=== PATIENT | female | born 1975 | race Two or more races ===

== ENCOUNTER 2016-08-12 20:49 | Inpatient (IN) | payer MEDICAID ==
[~2016-08-12] VITALS: Ht 167.6 cm; Wt 83.5 kg
[~2016-08-12 20:49] MED LIST: LEVO25TA6
[2016-08-12 21:22] LABS: Urine Blood TRACE /uL (Negative); Urine Color Yellow (Yellow); Urine Glucose Normal (Normal); Urine Ketone Negative (Negative); Urine Mucus FEW (None Seen); Urine Nitrite Negative (Negative); Urine RBC 2 /hpf (0 - 4); Urine Squamous Epithelial Cell MOD /hpf (<5)
[2016-08-12 21:25] LABS: Basophils # (auto) 0 uL; Basophils % (auto) 0.1 % (0.0-2.0); CONDITION Y; Eosinophils # (auto) 0 uL; Eosinophils % (auto) 0.3 % (0.0-7.0); Hematocrit 41.5 % (36.0-46.0); Hemoglobin 14.2 g/dL (12.2-16.2); Mean Corpuscular Hemoglobin 28.6 pg (28.0-32.0); Mean Corpuscular Hgb Conc. 34.3 g/dL (32.0-36.0); Mean Corpuscular Volume 83.6 fL (80.0-100.0); Monocytes # (auto) 0.1 uL; Monocytes % (auto) 1.2 % (0.0-12.0); Neutrophils # (auto) 6.9 uL; Neutrophils % (auto) 86.4 % (37.0-80.0); Platelet Count (auto) 277 10^3/uL (140-450); Red Cell Distribution Width 13.2 % (11.6-16.0)
[2016-08-12 21:35] LABS: Urine Bilirubin Negative (Negative)
[2016-08-12 21:50] LABS: Albumin 3.7 g/dL (3.4-5.0); BUN/Creatinine Ratio 12.3; Calcium 8.4 mg/dL (8.5-10.1); Magnesium 1.9 mg/dL (1.6-2.6); Potassium 3.5 mmol/L (3.5-5.1)
[2016-08-12 21:53] LABS: Bilirubin, Total 2.6 mg/dL (0.2-1.0); Total Protein 7.8 g/dL (6.4-8.2)
[2016-08-13] MEDS ORDERED: HYDROmorphone HCL 2 MG/ML VL IV ONE (02:15)
[2016-08-13] MEDS ORDERED: SODIUM CHLORIDE 0.9% 1,000 ML IV ONE (02:15)
[2016-08-13] MEDS ORDERED: ONDANSETRON HCL 4 MG/2 ML VIAL IV ONE (02:15)
[2016-08-13 03:05] LABS: Amylase 53 U/L (25-115)
[2016-08-13] MEDS: SODIUM CHLORIDE 0.9% 1,000 ML IV SCH ×2 (06:59→21:36)
[2016-08-13] MEDS ORDERED: ACETAMINOPHEN 325 MG TAB PO PRN (07:00)
[2016-08-13] MEDS ORDERED: TEMAZEPAM 15 MG CAP PO PRN (07:00)
[2016-08-13] MEDS: MORPHINE SULF INJ 2 MG/ML SYRINGE 1ML IV PRN ×2 (07:54→11:42)
[2016-08-13] MEDS: ONDANSETRON HCL 4 MG/2 ML VIAL IV PRN ×3 (07:54→22:35)
[2016-08-13] MEDS: PANTOPRAZOLE SODIUM 40 MG/10 ML VIAL IV SCH (07:54)
[2016-08-13 08:50] VITALS: BP 132/72
[2016-08-13 09:00] VITALS: BP 132/72
[2016-08-13 13:00] VITALS: BP 120/67
[2016-08-13 14:41] LABS: Basophils # (auto) 0 uL; Basophils % (auto) 0.3 % (0.0-2.0); CONDITION Y; Eosinophils # (auto) 0.1 uL; Eosinophils % (auto) 1.6 % (0.0-7.0); Hematocrit 35.1 % (36.0-46.0); Hemoglobin 12.1 g/dL (12.2-16.2); Lymphocytes # (auto) 1.3 uL; Lymphocytes % (auto) 21.2 % (10.0-50.0); Mean Corpuscular Hemoglobin 28.7 pg (28.0-32.0); Mean Corpuscular Hgb Conc. 34.5 g/dL (32.0-36.0); Mean Corpuscular Volume 83.2 fL (80.0-100.0); Monocytes # (auto) 0.4 uL; Monocytes % (auto) 6.3 % (0.0-12.0); Neutrophils # (auto) 4.2 uL; Neutrophils % (auto) 70.6 % (37.0-80.0); Platelet Count (auto) 234 10^3/uL (140-450); Red Cell Distribution Width 13.6 % (11.6-16.0)
[2016-08-13] MEDS: HYDROcodone-ACET 5/325MG TAB PO PRN ×2 (14:54→22:34)
[2016-08-13 15:11] LABS: Albumin 2.9 g/dL (3.4-5.0); BUN/Creatinine Ratio 13.3; Bilirubin, Total 1.6 mg/dL (0.2-1.0); Calcium 7.9 mg/dL (8.5-10.1); Potassium 3.2 mmol/L (3.5-5.1); Total Protein 6.1 g/dL (6.4-8.2)
[2016-08-13 17:00] VITALS: BP 114/60
[2016-08-13] MEDS: SUCRALFATE 1 GM/10 ML ORAL SUSP PO SCH ×2 (17:08→21:36)
[2016-08-13 22:00] VITALS: BP 109/59
[2016-08-14 05:11] VITALS: BP 99/69
[2016-08-14 05:33] LABS: Basophils # (auto) 0 uL; Basophils % (auto) 0.4 % (0.0-2.0); CONDITION Y; Eosinophils # (auto) 0.2 uL; Eosinophils % (auto) 3.6 % (0.0-7.0); Hematocrit 35.3 % (36.0-46.0); Lymphocytes # (auto) 1.9 uL; Lymphocytes % (auto) 33.3 % (10.0-50.0); Mean Corpuscular Hemoglobin 28.9 pg (28.0-32.0); Mean Platelet Volume 8.3 fL (7.4-10.4); Monocytes # (auto) 0.4 uL; Monocytes % (auto) 6.5 % (0.0-12.0); Neutrophils # (auto) 3.2 uL; Neutrophils % (auto) 56.2 % (37.0-80.0); Platelet Count (auto) 233 10^3/uL (140-450); Red Cell Distribution Width 13.1 % (11.6-16.0); White Blood Cell 5.8 10^3/uL (4.4-10.8)
[2016-08-14] MEDS: HYDROcodone-ACET 5/325MG TAB PO PRN ×2 (06:17→18:36)
[2016-08-14] MEDS: SUCRALFATE 1 GM/10 ML ORAL SUSP PO SCH ×4 (06:17→22:00)
[2016-08-14] MEDS: ONDANSETRON HCL 4 MG/2 ML VIAL IV PRN ×2 (06:17→10:10)
[2016-08-14 06:18] LABS: Albumin 2.7 g/dL (3.4-5.0); BUN/Creatinine Ratio 11.7; Calcium 7.7 mg/dL (8.5-10.1)
[2016-08-14 06:21] LABS: Bilirubin, Total 1.1 mg/dL (0.2-1.0); Total Protein 6.1 g/dL (6.4-8.2)
[2016-08-14 06:35] LABS: Potassium 3.6 mmol/L (3.5-5.1)
[2016-08-14 08:00] VITALS: BP 108/55
[2016-08-14] MEDS: PANTOPRAZOLE SODIUM 40 MG/10 ML VIAL IV SCH (10:10)
[2016-08-14] MEDS: SODIUM CHLORIDE 0.9% 1,000 ML IV SCH (11:44)
[2016-08-14 12:00] VITALS: BP 127/73
[2016-08-14 12:08] LABS: Cholesterol 107 mg/dL (< 200); HDL Cholesterol 22 mg/dL (40-59); LDL Cholesterol 70 mg/dL (< 100); Triglycerides 149 mg/dL (< 150)
[2016-08-14 17:00] VITALS: BP 137/75
[2016-08-14 21:26] VITALS: BP 132/90
[2016-08-15] MEDS: SODIUM CHLORIDE 0.9% 1,000 ML IV SCH (02:36)
[2016-08-15 05:01] VITALS: BP 113/60
[2016-08-15] MEDS: SUCRALFATE 1 GM/10 ML ORAL SUSP PO SCH ×2 (06:07→11:30)
[2016-08-15 07:03] LABS: BUN/Creatinine Ratio 10.4; Calcium 7.9 mg/dL (8.5-10.1); Potassium 4.2 mmol/L (3.5-5.1)
[2016-08-15 07:06] LABS: Bilirubin, Total 0.9 mg/dL (0.2-1.0); Total Protein 6.3 g/dL (6.4-8.2)
[2016-08-15 09:00] VITALS: BP 115/70
[2016-08-15] MEDS ORDERED: PANTOPRAZOLE 40 MG TAB PO SCH (10:00)
[2016-08-15] MEDS: HYDROcodone-ACET 5/325MG TAB PO PRN (10:24)
[2016-08-15 13:00] VITALS: BP 122/69
[2016-08-15 13:10] VITALS: BP 122/69
[2016-08-15 13:30] VITALS: BP 122/69
== END 2016-08-15 14:43 | disposition home or self-care (01) | DRG 282 ==
LOC: ER 20:51 → OVERFLOW 20:52 → WEST WING 08-13 08:40
PROVIDERS: ADMIT Nurse Practitioner; ATTEND Internal Medicine
DX: K85.90 Acute pancreatitis without necrosis or infection, unspecified (principal); K52.9 Noninfective gastroenteritis and colitis, unspecified; Z87.442 Personal history of urinary calculi; Z83.3 Family history of diabetes mellitus; Z90.49 Acquired absence of other specified parts of digestive tract; Z87.440 Personal history of urinary (tract) infections; Z98.51 Tubal ligation status
CPT/HCPCS: 36415; 74176; 74181; 76705; 80053; 80061; 81001; 82150; 83690; 83735; 84702; 85025; 86677; 96361; 96374; 96375; C9113; J2405

== ENCOUNTER 2017-07-26 15:51 | Emergency (ER) | payer MEDICAID ==
[~2017-07-26] VITALS: Ht 167.6 cm; Wt 80.7 kg
[2017-07-26 16:48] LABS: Basophils # (auto) 0 uL; Basophils % (auto) 0.2 % (0.0-2.0); Eosinophils # (auto) 0.2 uL; Eosinophils % (auto) 2.4 % (0.0-7.0); Hematocrit 39.2 % (36.0-46.0); Hemoglobin 13.9 g/dL (12.2-16.2); Lymphocytes # (auto) 2.5 uL; Lymphocytes % (auto) 27.5 % (10.0-50.0); Mean Corpuscular Hemoglobin 29.5 pg (28.0-32.0); Mean Corpuscular Hgb Conc. 35.5 g/dL (32.0-36.0); Mean Corpuscular Volume 82.9 fL (80.0-100.0); Monocytes # (auto) 0.6 uL; Monocytes % (auto) 6.6 % (0.0-12.0); Neutrophils # (auto) 5.7 uL; Neutrophils % (auto) 63.3 % (37.0-80.0); Nucleated Red Blood Cells % 0.2 %; Platelet Count (auto) 255 10^3/uL (140-450); Red Blood Cells 4.73 10^6/uL (4.0-5.20); Red Cell Distribution Width 13.3 % (11.8-14.3); White Blood Cell 8.9 10^3/uL (4.4-10.8)
[2017-07-26 16:54] LABS: Albumin 3.8 g/dL (3.4-5.0); BUN/Creatinine Ratio 16.2; Calcium 8.3 mg/dL (8.5-10.1); Potassium 3.6 mmol/L (3.5-5.1)
[2017-07-26 16:57] LABS: Bilirubin, Total 1.5 mg/dL (0.2-1.0); Total Protein 7.7 g/dL (6.4-8.2)
[2017-07-26 17:11] LABS: Urine Bacteria NONE SEEN /hpf (None Seen); Urine Blood TRACE /uL (Negative); Urine Mucus FEW (None Seen); Urine Specific Gravity 1.024 (1.001-1.035); Urine WBC 1 /hpf (0 - 5)
[2017-07-26 18:06] VITALS: BP 137/72
== END 2017-07-26 18:01 | disposition home or self-care (01) ==
LOC: ER 15:51
DX: R10.84 Generalized abdominal pain (principal); R11.0 Nausea; E78.5 Hyperlipidemia, unspecified; E07.9 Disorder of thyroid, unspecified; Z98.51 Tubal ligation status; Z90.49 Acquired absence of other specified parts of digestive tract
CPT/HCPCS: 36415; 80053; 81001; 82150; 83690; 85025

== ENCOUNTER 2020-09-20 11:53 | Emergency (ER) | payer MEDICAID ==
[~2020-09-20] VITALS: Ht 167.6 cm; Wt 81.2 kg
[2020-09-20] MEDS ORDERED: MECLIZINE HCL 25 MG TAB PO ONE (12:15)
[2020-09-20 13:24] LABS: Mean Corpuscular Hemoglobin 21.1 pg (28.0-32.0)
[2020-09-20 13:25] LABS: Hematocrit 33.1 % (36.0-46.0); Hemoglobin 10.5 g/dL (12.2-16.2); Mean Corpuscular Hgb Conc. 31.6 g/dL (32.0-36.0); Red Blood Cells 4.95 10^6/uL (4.0-5.20); Red Cell Distribution Width 17.2 % (11.8-14.3); White Blood Cell 8.7 10^3/uL (4.4-10.8)
[2020-09-20 13:33] LABS: Band Neutrophils % (manual) 0; Basophils % (manual) 0 (0.0-2.0); Blast Cells 0; Promyelocytes % 0; Reactive Lymphocytes 0
[2020-09-20 13:55] LABS: Albumin 3.5 g/dL (3.4-5.0); Anion Gap 6 (5-15); Blood Urea Nitrogen 8 mg/dL (7-18); Calcium 8.7 mg/dL (8.5-10.1); Carbon Dioxide 24 mmol/L (21-32); Chloride 107 mmol/L (98-107); Glucose 105 mg/dL (74-106); Potassium 4.1 mmol/L (3.5-5.1); Sodium 137 mmol/L (136-145)
[2020-09-20 14:00] LABS: Alanine Aminotransferase 39 U/L (13-56); Alkaline Phosphatase 114 U/L (45-117); Aspartate Aminotransferase 23 U/L (15-37); BUN/Creatinine Ratio 15.1; GFR African American 162 mL/min; GFR Non-African American 134 mL/min; Total Protein 7.7 g/dL (6.4-8.2)
[2020-09-20 14:01] LABS: Eosinophils % (manual) 1 (0-7); Lymphocytes % (manual) 23 (10.0-50.0); Metamyelocytes % 1; Monocytes % (manual) 7 (0-12); Myelocytes % 2
[2020-09-20 15:57] LABS: Urine Bacteria NONE SEEN /hpf (None Seen); Urine Blood Negative /uL (Negative); Urine Mucus FEW (None Seen); Urine Specific Gravity 1.022 (1.001-1.035); Urine WBC 4 /hpf (0 - 5)
[2020-09-20 16:17] VITALS: BP 160/80
== END 2020-09-20 19:33 | disposition home or self-care (01) ==
LOC: ER 11:53
DX: R42 Dizziness and giddiness (principal); N39.0 Urinary tract infection, site not specified; E78.5 Hyperlipidemia, unspecified; Z90.49 Acquired absence of other specified parts of digestive tract; Z98.51 Tubal ligation status
CPT/HCPCS: 36415; 70450; 80053; 81001; 84484; 85007; 85027; 99284; J8597

== ENCOUNTER 2021-10-14 08:41 | Emergency (ER) | payer MEDICAID ==
[~2021-10-14] VITALS: Ht 167.6 cm; Wt 81.8 kg
[2021-10-14 09:21] VITALS: BP 147/83
[2021-10-14] MEDS ORDERED: HYDROcodone-ACET 10/325MG TAB PO ONE (10:00)
== END 2021-10-14 14:16 | disposition home or self-care (01) ==
LOC: EDBD 08:41 → ER 08:41
DX: R06.02 Shortness of breath (principal); M79.18 Myalgia, other site; E78.5 Hyperlipidemia, unspecified; Z90.49 Acquired absence of other specified parts of digestive tract; Z98.51 Tubal ligation status; Z90.710 Acquired absence of both cervix and uterus; Z87.442 Personal history of urinary calculi
CPT/HCPCS: 71045; 72100; 93005